=== PATIENT | male | born 1990 | race African-American/Black ===

== ENCOUNTER 2016-07-02 19:09 | Emergency (ER) | payer OTHER ==
[~2016-07-02] VITALS: Ht 172.7 cm; Wt 60.8 kg
[~2016-07-02 19:09] MED LIST: FLEXERIL PO; IBUPROFEN 600600 M1 PO
[2016-07-02 19:10] VITALS: BP 121/85
[2016-07-02] MEDS ORDERED: ERYTHROMYCIN E3.5 G3 OPHTHALMIC (19:54)
[2016-07-02 20:25] LABS: URINE BILIRUBIN NEGATIVE (Negative); URINE BLOOD 2+ (Negative); URINE COLOR YELLOW; URINE GLUCOSE-RANDOM* NEGATIVE (Negative); URINE KETONES NEGATIVE (Negative); URINE NITRITE NEGATIVE (Negative); URINE PROTEIN (DIPSTICK) NEGATIVE (Negative)
[2016-07-02 20:32] LABS: BACTERIA 1-9 Few /HPF (None Seen); CASTS None Seen /LPF (None Seen); CRYSTALS None Seen /LPF (None Seen); SQUAMOUS None Seen /LPF (0-3); URINE RBC 3-10 Few /HPF (0-2); URINE WBC 0-5 Rare /HPF (0-5)
== END 2016-07-02 20:15 | disposition left against medical advice (07) ==
LOC: ER 19:09
PROVIDERS: Physician Assistant
DX: H57.8 Other specified disorders of eye and adnexa (principal); Z11.3 Encounter for screening for infections with a predominantly sexual mode of transmission; Z97.3 Presence of spectacles and contact lenses